=== PATIENT | female | born 1945 ===

== ENCOUNTER 2017-01-19 16:26 | Inpatient (IN) | payer MEDICARE, OTHER ==
--- NOTE | 2017-01-19 16:56 | C.PDOC ---
History Of Present Illness 71-year-old female, presents to the emergency department with complaints of syncope onset prior to arrival. States "I don't remember what happened" Patient states she was standing, cooking and "felt funny." She was caught from fall by grandson. Complaining of abrasion to left ankle and right arm. Patient is currently asymptomatic. Denies chest pain, headache, abdominal pain. SYNCOPE ONS[employer]. "I DONT REMEMBER WHAT HAPPENED". PS WAS STANDING, COOKING FELT "FUNNY". WAS CAUGHT FROM FALL BY GRANDSON. CO ABRASION L ANKLE, R ARM. CURRENTLY ASYMPT. DENIES CP, HINES, ABD PAIN. HO AML, CURRENTLY RECEIVING CHEMO @ [facility] IN [facility]. LAST CHEMO 2 WKS AGO EXAM NAD NONTOXIC HEENT pallor SKIN +ABRASION R ARM, L ANKLE. NO BLEED LUNGS NEG CV RRR NEURO NO FOCAL DEF EXT ATRAUM ABD NEG Time Seen by Provider: 01/19/17 16:46 Chief Complaint (Nursing): Syncope History Per: Patient, Family History/Exam Limitations: no limitations Onset/Duration Of Symptoms: Other (prior to arrival) Past Medical History Reviewed: Historical Data, Nursing Documentation, Vital Signs Vital Signs: Last Vital Signs Temp 99.1 F 01/19/17 16:40 Pulse 71 01/19/17 18:18 Resp 18 01/19/17 18:18 BP 110/50 L 01/19/17 18:18 Pulse Ox 100 01/19/17 18:26 - Medical History PMH: HTN, Hypercholesterolemia, Hypothyroidism Family History: States: No Known Family Hx - Social History Hx Alcohol Use: No Hx Substance Use: No - Immunization History Hx Tetanus Toxoid Vaccination: No Hx Influenza Vaccination: Yes Hx Pneumococcal Vaccination: Yes Review Of Systems Except As Marked, All Systems Reviewed And Found Negative. Cardiovascular: Negative for: Chest Pain Respiratory: Negative for: Shortness of Breath Gastrointestinal: Negative for: Vomiting Skin: Positive for: Other (Abrasion to L ankle) Neurological: Positive for: Other (Syncopal episode). Negative for: Weakness, Numbness Physical Exam - Physical Exam Appears: Non-toxic, No Acute Distress Skin: Warm, Dry, No Rash, Other (+ABRASION R ARM, L ANKLE. NO BLEED) Head: Atraumatic, Normacephalic Eye(s): bilateral: Conjunctiva Pale Nose: Normal Oral Mucosa: Moist Lips: Normal Appearing Neck: Normal ROM Respiratory: No Accessory Muscle Use Neurological/Psych: Oriented x3 ED Course And Treatment - Laboratory Results Result Diagrams: 01/19/17 17:57 01/19/17 17:57 ECG: Interpreted By Me ECG Rhythm: Sinus Rhythm ECG Interpretation: Normal Rate From EC O2 Sat by Pulse Oximetry: 100 Pulse Ox Interpretation: Normal - Radiology CXR: Interpreted by Me CXR Interpretation: Yes: No Acute Disease Progress - Re-Evaluation Re-evaluation Note: 01/19/17 18:35 PT ADVISED OF NEED TO STAY. 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 CONSULT DR Raul HOWELL, DEFER TRANSFUSION PENDING HEME/ONC CONSULT - Data Reviewed Data Reviewed: Lab, Diagnostic imaging, EKG, Old records - Continuity of Care Discussed patient case with:: Patient, On-call PMD-pt unassigned Disposition Counseled Patient/Family Regarding: Studies Performed, Diagnosis - Disposition Disposition: HOSPITALIZED Disposition Time: 18:38 Condition: STABLE - POA Present On Arrival: None - Clinical Impression Clinical Impression: Syncope, AML (acute myeloblastic leukemia), Anemia, Thrombocytopenia - Scribe Statement The provider has reviewed the documentation as recorded by the Scribe Gustavo Lee All medical record entries made by the Scribe were at my direction and personally dictated by me. I have reviewed the chart and agree that the record accurately reflects my personal performance of the history, physical exam, medical decision making, and the department course for this patient. I have also personally directed, reviewed, and agree with the discharge instructions and disposition. Decision To Admit - Pt Status Changed To: Hospital Disposition Of: Inpatient - Admit Certification Admit to Inpatient:: After my assessment, the patient will require hospitalization for at least two midnights. This is because of the severity of symptoms shown, intensity of services needed, and/or the medical risk in this patient being treated as an outpatient. - InPatient: Physician Admission Certification: I certify that this patient requires 2 or more midnights of care for the following reason:: SEE NOTE - . Bed Request Type: Telemetry Admitting Physician: Noe Coughlin Patient Diagnosis: Syncope, AML (acute myeloblastic leukemia), Anemia, Thrombocytopenia
[2017-01-19 18:08] LABS: BASO % 0.6 % (0.0-2.0); EOS % 0.6 % (0.0-4.0); HEMATOCRIT 19.7 % (34.0-47.0); LYMPH # 0.5 K/uL (1.0-4.3); LYMPH % 55.5 % (20.0-40.0); MEAN CELL VOLUME 85.7 fL (81.0-99.0); MEAN CORPUSCULAR HEMOGLOBIN 29.7 pg (27.0-31.0); MEAN CORPUSCULAR HGB CONC 34.6 g/dL (33.0-37.0); MONO % 1.5 % (0.0-10.0); NRBC % 0.1 % (0.0-2.0); RED CELL DISTRIBUTION WIDTH 12.7 % (11.5-14.5)
--- NOTE | 2017-01-19 18:08 | CT ---
EXAM: CT Head Without Intravenous Contrast CLINICAL HISTORY: 71 years old, female; Signs and symptoms; Syncope and collapse TECHNIQUE: Axial computed tomography images of the head/brain without intravenous contrast. This CT exam was performed using one or more of the following dose reduction techniques: automated exposure control, adjustment of the mA and/or kV according to patient size, and/or use of iterative reconstruction technique. EXAM DATE/TIME: 01/19/2017 4:58 PM COMPARISON: There are no prior studies for comparison. FINDINGS: Brain: There is dilatation of sulci gyri and ventricles. There is no midline shift. There is decreased attenuation in periventricular white matter. There are age-indeterminate lacunar infarcts in the basal ganglia. There are no focal masses. There are no focal hemorrhages. Scott-white differentiation is visualized. Ventricles: See above Bones: Cranial vault is intact. Soft tissues: unremarkable Sinuses: There is no acute sinusitis. Ears and mastoids: Middle ears and mastoids are unremarkable. Orbits: Orbital contents are unremarkable. IMPRESSION: Mild atrophy and small vessel disease, no bleed
[2017-01-19 18:16] LABS: CHLORIDE 104 mmol/L (98-107); POTASSIUM 4.4 mmol/L (3.6-5.2); SODIUM 137 mmol/L (132-148)
[2017-01-19 18:18] LABS: BILIRUBIN,TOTAL 0.6 mg/dL (0.2-1.3); GFR AFRICAN-AMERICAN > 60
[2017-01-19 18:19] LABS: ALB/GLOB RATIO 1.2 (1.0-2.1); ALKALINE PHOSPHATASE 65 U/L (38-126); ALT/SGPT 17 U/L (9-52); AST/SGOT 13 U/L (14-36); BLOOD UREA NITROGEN 18 mg/dL (7-17); CARBON DIOXIDE 23 mmol/L (22-30); GLUCOSE,RANDOM 222 mg/dL (65-105); TOTAL PROTEIN 6.1 g/dL (6.3-8.3)
[2017-01-19 18:20] LABS: CALCIUM 8.1 mg/dl (8.6-10.4)
[2017-01-19 21:07] LABS: RBC URINE < 1 /hpf (0-3); URINE BILIRUBIN NEGATIVE (NEGATIVE); URINE BLOOD NEGATIVE (NEGATIVE); URINE COLOR Straw (YELLOW); URINE GLUCOSE (UA) NORMAL (Normal); URINE KETONE NEGATIVE (NEGATIVE); URINE LEUKOCYTE ESTERASE NEG Leu/uL (Negative); URINE PROTEIN NEGATIVE (NEGATIVE); URINE UROBILINOGEN NORMAL mg/dL (0.2-1.0)
--- NOTE | 2017-01-19 21:13 | CP.PCM.CON ---
History of Present Illness - History of Present Illness History of Present Illness: 71 year old female with a history of AML diagnosed in 2012 on azacytadine treatment at [facility], last treated about 2 weeks ago, admitted with syncopal episode and pancytopenia. The patient reports to cooking and awoke on the floor covered in her own vomit. She was found by her grandson and brought to the hospital. In the ER, she was found severely pancytopenic. She denies fevers and chills. She has no bleeding and bruising. She does report to requiring PRBC and PLT transfusion prior to some of her leukemia treatments. Past medical history: AML Past surgical history: None Family history: Denies hematologic and oncologic problems Social history: Denies tobacco, alcohol, and illicit drug use. Allergies: NKA Review of systems: All remaining review of systems including HEENT, cardiovascular, respiratory, gastrointestinal, genitourinary, musculoskeletal, dermatologic, neurologic, and psychiatric are negative unless mentioned in the HPI. Past Patient History - Past Social History Smoking Status: Never Smoked - CARDIAC Hx Hypercholesterolemia: Yes Hx Hypertension: Yes - ENDOCRINE/METABOLIC Hx Hypothyroidism: Yes - HEMATOLOGICAL/ONCOLOGICAL Hx Leukemia: Yes (on chemo) - PSYCHIATRIC Hx Substance Use: No Meds Allergies/Adverse Reactions: Allergies Allergy/AdvReac Type Severity Reaction Status Date / Time No Known Allergies Allergy Verified 01/19/17 19:25 Physical Exam - Head Exam Head Exam: ATRAUMATIC - Eye Exam Eye Exam: Normal appearance - ENT Exam ENT Exam: Mucous Membranes Dry - Respiratory Exam Respiratory Exam: NORMAL BREATHING PATTERN - Cardiovascular Exam Cardiovascular Exam: +S1, +S2 - GI/Abdominal Exam GI & Abdominal Exam: Normal Bowel Sounds - Extremities Exam Extremities exam: Positive for: normal inspection - Neurological Exam Neurological exam: Oriented x3 - Psychiatric Exam Psychiatric exam: Normal Affect, Normal Mood - Skin Skin Exam: Warm Results - Vital Signs Recent Vital Signs: Last Vital Signs Temp 98.8 F 01/19/17 19:36 Pulse 67 01/19/17 19:36 Resp 13 01/19/17 19:36 BP 125/41 L 01/19/17 19:36 Pulse Ox 99 01/19/17 19:36 - Labs Result Diagrams: 01/19/17 17:57 01/19/17 17:57 Labs: Laboratory Results - last 24 hr 01/19/17 19:52 Blood Type O POSITIVE Antibody Screen Negative Assessment & Plan (1) Pancytopenia Assessment and Plan: treatment related vs. progression of AML with severe neutropenia will need neutropenic precautions transfuse 2U PRBC and 1 bag platelets avoid Neupogen as may stimulate leukemia Status: Acute (2) AML (acute myeloblastic leukemia) Assessment and Plan: on hypomethylating agent (azacytadine) at [facility]; last given 2 weeks ago outpatient treatment Thank you for this interesting consult. Status: Acute
[2017-01-20] MEDS ORDERED: Pantoprazole 40 mg EC Tab PO SCH ×2 (07:30→10:00)
--- NOTE | 2017-01-20 08:03 | RAD ---
PROCEDURE: CHEST RADIOGRAPH, 1 VIEW HISTORY: chest pain COMPARISON: None available. FINDINGS: LUNGS: Mild venous congestion. Right hilar prominence. PLEURA: No pneumothorax or pleural fluid seen. CARDIOVASCULAR: Normal. OSSEOUS STRUCTURES: Degenerative changes in the spine and shoulders. VISUALIZED UPPER ABDOMEN: Normal. OTHER FINDINGS: None. IMPRESSION: Mild venous congestion.
[2017-01-20] MEDS ORDERED: Simethicone 80 mg Chewtab PO PRN ×2 (08:34→12:00)
[2017-01-20] MEDS: (Lantus) Insulin Glargine, Recombinant SC SCH (11:26)
[2017-01-20] MEDS: Magnesium Oxide 400 mg Tab UD PO SCH (11:27)
[2017-01-20] MEDS: (Novolog) Insulin Aspart, Recombinant 100 u/ml 10 ml vial SC SCH ×4 (11:27→22:43)
[2017-01-20] MEDS: Atovaquone 750 mg/5 ml Susp UD PO SCH (11:28)
[2017-01-20] MEDS: Nystatin 100,000 Units/gm Cream(15 gm) TOP SCH (11:29)
--- NOTE | 2017-01-20 11:32 | CP.PCM.PN ---
Subjective - Date & Time of Evaluation Date of Evaluation: 01/20/17 Time of Evaluation: 09:40 - Subjective Subjective: PGY2 Medicine Note - Dr. Coughlin's service: Patient seen and examined at bedside this AM. Patient reports still feeling weak. Patient had 2U pRBCs last night and 1 unit of platelets. Patient denies fever, chills, chest pain, SOB, abdominal pain, nausea, vomiting. Objective - Vital Signs/Intake and Output Vital Signs (last 24 hours): Temp Pulse Resp BP Pulse Ox 98.4 F 64 20 133/60 97 01/20/17 07:56 01/20/17 07:56 01/20/17 07:56 01/20/17 07:56 01/20/17 07:56 Intake and Output: 01/20/17 01/20/17 06:59 18:59 Intake Total 308 Balance 308 - Medications Medications: Current Medications Acyclovir (Zovirax) 800 mg PO BID [facility] Atovaquone (Mepron) 750 mg PO DAILY [facility] Buspirone HCl (Buspar) 15 mg PO DAILY [facility] Carvedilol (Coreg) 3.125 mg PO BID [facility] Clotrimazole (Mycelex Pool) 10 mg PO TID [facility] Escitalopram Oxalate (Lexapro) 20 mg PO DAILY [facility] Gabapentin (Neurontin) 600 mg PO TID [facility] Insulin Aspart (Novolog) 0 unit SC ACHS [facility] PRN Reason: Protocol Insulin Glargine (Lantus) 7 unit SC DAILY [facility] Levothyroxine Sodium (Synthroid) 50 mcg PO 0630 [facility] Loperamide HCl (Imodium) 2 mg PO QID PRN PRN Reason: Diarrhea Losartan Potassium (Cozaar) 25 mg PO DAILY [facility] Magnesium Oxide (Mag-Ox) 400 mg PO DAILY [facility] Nystatin (Mycostatin Cream) 0 ea TOP DAILY [facility] Ondansetron HCl (Zofran Odt) 8 mg PO Q8H PRN PRN Reason: Nausea/Vomiting Pantoprazole Sodium (Protonix Ec Tab) 40 mg PO DAILY [facility] Simethicone (Mylicon Chew Tab) 80 mg PO BID PRN PRN Reason: GI DISTRESS Sitagliptin Phosphate (Januvia) 100 mg PO DAILY [facility] - Labs Labs: PT 11.2 SECONDS (9.7-12.2) 01/19/17 17:57 INR 1.0 01/19/17 17:57 APTT 23 SECONDS (21-34) 01/19/17 17:57 - Constitutional Appears: Non-toxic, No Acute Distress - Head Exam Head Exam: NORMAL INSPECTION - Eye Exam Eye Exam: EOMI - ENT Exam ENT Exam: Mucous Membranes Moist - Respiratory Exam Respiratory Exam: Clear to Ausculation Bilateral, NORMAL BREATHING PATTERN. absent: Rales, Rhonchi, Wheezes - Cardiovascular Exam Cardiovascular Exam: REGULAR RHYTHM, +S1, +S2. absent: Tachycardia - GI/Abdominal Exam GI & Abdominal Exam: Soft, Normal Bowel Sounds. absent: Tenderness - Neurological Exam Neurological Exam: Alert, Awake, Oriented x3 - Psychiatric Exam Psychiatric exam: Normal Affect, Normal Mood - Skin Skin Exam: Normal Color, Warm Assessment and Plan - Assessment and Plan (Free Text) Assessment: Pancytopenia Heme/Onc consult - Dr. Alcocer - help appreciated Likely secondary to progression of AML vs. chemotherapy 2 units pRBCs 01/19/17 1 unit plts 01/19/17 F/U CBC today Acyclovir 800mg PO bID for prophylaxis Clotrimazole 10mg PO TID for prophylaxis AML on hypomethylating agent (azacytadine) at [facility]; last given 2 weeks ago outpatient treatment Syncope Head CT - mild atrophy and small vessel disease F/U ECHO, carotid duplex scan No EEG or MRI for now per Dr. Coughlin F/U Vitamin D, B12, Folate, RPR Elevated d dimer 730 No CTA because patient does not have symptoms per Dr. Ced Rodriguez Simethicone 80mg PO BID HTN Cozaar 25mg PO daily Hypothyroid Synthroid 50 mcg PO daily DM RISS Accuchecks Lantus 7U SC daily Gabapentin 600mg PO TID Januvia 100mg PO daily Prophylaxis Protonix 40mg PO daily No chemical VTE prophylaxis secondary to pancytopenia
[2017-01-20 12:15] LABS: BASO % 0.5 % (0.0-2.0); EOS % 0.3 % (0.0-4.0); HEMATOCRIT 28.1 % (34.0-47.0); LYMPH # 0.5 K/uL (1.0-4.3); LYMPH % 49.7 % (20.0-40.0); MEAN CORPUSCULAR HEMOGLOBIN 29.8 pg (27.0-31.0); MEAN CORPUSCULAR HGB CONC 35.7 g/dL (33.0-37.0); MEAN PLATELET VOLUME 7.7 fL (7.2-11.7); MONO % 1.7 % (0.0-10.0); NRBC % 0.2 % (0.0-2.0); RED CELL DISTRIBUTION WIDTH 13.2 % (11.5-14.5)
[2017-01-20 12:19] LABS: MEAN CELL VOLUME 83.3 fL (81.0-99.0)
--- NOTE | 2017-01-20 12:25 | CARD ---
APPROVED REPORT EXAM: Two-dimensional and M-mode echocardiogram with Doppler and color Doppler. Other Information Quality : GoodRhythm : NSR INDICATION Dyspnea Syncope aml, thrombocytopenia, anemia RISK FACTORS Hypertension Hyperlipidemia M-Mode DIMENSIONS RVDd1.51 (2.1-3.2cm)Left Atrium (MM)3.72 (2.5-4.0cm) IVSd1.07 (0.7-1.1cm)Aortic Root2.95 (2.2-3.7cm) LVDd4.43 (4.0-5.6cm)Aortic Cusp Exc.1.48 (1.5-2.0cm) PWd1.22 (0.7-1.1cm)FS (%) 22 % LVDs3.47 (2.0-3.8cm)LVEF (%)44 (>50%) Aortic Valve AoV Peak Cjrnkvej316.9cm/Reinier Peak GR.10mmHg Mitral Valve MV E Ckyyfyiu566.4cm/sMV A Ptnklfvw851.7cm/sE/A ratio0.8 TDI E/Lateral E'0.0E/Medial E'0.0 Tricuspid Valve TR Peak Hftwqajg725wk/sTR Peak Gr.[id number] LEFT VENTRICLE The left ventricle is normal size. There is normal left ventricular wall thickness. The systolic function is mildly impaired. Transmitral Doppler flow pattern is Grade I-abnormal relaxation pattern. RIGHT VENTRICLE The right ventricle is normal size. There is normal right ventricular wall thickness. The right ventricular systolic function is normal. ATRIA The left atrium size is normal. The right atrium size is normal. AORTIC VALVE The aortic valve is normal in structure. No aortic regurgitation is present. MITRAL VALVE Mitral regurgitation is trace. TRICUSPID VALVE There is mild to moderate tricuspid regurgitation. There is mild to moderate pulmonary hypertension. PULMONIC VALVE There is trace pulmonic valvular regurgitation. GREAT VESSELS The aortic root is normal in size. PERICARDIAL EFFUSION There is no pericardial effusion. <Conclusion> The left ventricle is normal size. There is normal left ventricular wall thickness. The systolic function is mildly impaired. Transmitral Doppler flow pattern is Grade I-abnormal relaxation pattern. There is mild to moderate tricuspid regurgitation. There is mild to moderate pulmonary hypertension.
[2017-01-20 12:45] LABS: CHLORIDE 102 mmol/L (98-107); POTASSIUM 4.1 mmol/L (3.6-5.2); SODIUM 136 mmol/L (132-148)
[2017-01-20 12:47] LABS: AST/SGOT 17 U/L (14-36); BILIRUBIN,TOTAL 1.1 mg/dL (0.2-1.3); CARBON DIOXIDE 24 mmol/L (22-30); GFR AFRICAN-AMERICAN > 60
[2017-01-20 12:48] LABS: ALB/GLOB RATIO 1.1 (1.0-2.1); ALKALINE PHOSPHATASE 75 U/L (38-126); ALT/SGPT 19 U/L (9-52); BLOOD UREA NITROGEN 12 mg/dL (7-17); CALCIUM 8.4 mg/dl (8.6-10.4); GLUCOSE,RANDOM 306 mg/dL (65-105); TOTAL PROTEIN 6.8 g/dL (6.3-8.3)
--- NOTE | 2017-01-20 14:57 | CP.PCM.CON ---
<Abigail Matos - Last Filed: 01/20/17 16:15> History of Present Illness - History of Present Illness History of Present Illness: PGY-[address] 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 Pt ate only breakfast, was cooking at home, suddenly felt "funny" , then found herself awake on the floor with vomitus. Grandson found pt on the floor and sent her to the ER. During this hospital stay, she was on neutropenic precaution. She received rRBC x 2 and plt x 1. Echo (01/20): LVEF 44 with Grade 1 relaxation. Moderate tricuspid regurg. Mod pulm HTN, RVSP 50. Carotid doppler: pending offical consult PMH AML on azacytadine Diabetes x 30 years PSH Port-a-cath removal FH: DM (no stroke. no MS) SH: deneis ever drink, smoke, drug Meds: MICHELLE Allergy: NKA PMD: [facility] Past Patient History - Past Social History Smoking Status: Former Smoker - CARDIAC Hx Hypercholesterolemia: Yes Hx Hypertension: Yes - ENDOCRINE/METABOLIC Hx Hypothyroidism: Yes - HEMATOLOGICAL/ONCOLOGICAL Hx Leukemia: Yes (on chemo) - MUSCULOSKELETAL/RHEUMATOLOGICAL Hx Falls: Yes - PSYCHIATRIC Hx Substance Use: No - ANESTHESIA Hx Anesthesia: Yes Hx Anesthesia Reactions: No Hx Malignant Hyperthermia: No Has any member of the family had a problem w/ anesthesia?: No Meds Allergies/Adverse Reactions: Allergies Allergy/AdvReac Type Severity Reaction Status Date / Time No Known Allergies Allergy Verified 01/19/17 19:25 - Medications Medications: Current Medications Acyclovir (Zovirax) 800 mg PO BID [facility] Last Admin: 01/20/17 11:29 Dose: 800 mg Atovaquone (Mepron) 750 mg PO DAILY [facility] Last Admin: 01/20/17 11:28 Dose: 750 mg Buspirone HCl (Buspar) 15 mg PO DAILY [facility] Last Admin: 01/20/17 11:27 Dose: 15 mg Carvedilol (Coreg) 3.125 mg PO BID [facility] Last Admin: 01/20/17 11:28 Dose: 3.125 mg Clotrimazole (Mycelex Pool) 10 mg PO TID [facility] Last Admin: 01/20/17 13:24 Dose: 10 mg Escitalopram Oxalate (Lexapro) 20 mg PO DAILY [facility] Last Admin: 01/20/17 11:28 Dose: 20 mg Gabapentin (Neurontin) 600 mg PO TID [facility] Last Admin: 01/20/17 13:24 Dose: 600 mg Insulin Aspart (Novolog) 0 unit SC ACHS [facility] PRN Reason: Protocol Last Admin: 01/20/17 13:24 Dose: 5 unit Insulin Glargine (Lantus) 7 unit SC DAILY [facility] Last Admin: 01/20/17 11:26 Dose: 7 units Levothyroxine Sodium (Synthroid) 50 mcg PO 30 [facility] Loperamide HCl (Imodium) 2 mg PO QID PRN PRN Reason: Diarrhea Losartan Potassium (Cozaar) 25 mg PO DAILY [facility] Last Admin: 01/20/17 11:27 Dose: 25 mg Magnesium Oxide (Mag-Ox) 400 mg PO DAILY [facility] Last Admin: 01/20/17 11:27 Dose: 400 mg Nystatin (Mycostatin Cream) 0 ea TOP DAILY [facility] Last Admin: 01/20/17 11:29 Dose: 1 appl Ondansetron HCl (Zofran Odt) 8 mg PO Q8H PRN PRN Reason: Nausea/Vomiting Pantoprazole Sodium (Protonix Ec Tab) 40 mg PO DAILY [facility] Simethicone (Mylicon Chew Tab) 80 mg PO BID PRN PRN Reason: GI DISTRESS Last Admin: 01/20/17 13:24 Dose: 80 mg Sitagliptin Phosphate (Januvia) 100 mg PO DAILY [facility] Last Admin: 01/20/17 11:28 Dose: 100 mg Physical Exam - Head Exam Head Exam: ATRAUMATIC, NORMOCEPHALIC - Eye Exam Eye Exam: EOMI, Normal appearance, PERRL Pupil Exam: NORMAL ACCOMODATION - ENT Exam ENT Exam: Mucous Membranes Moist - Respiratory Exam Respiratory Exam: Clear to Auscultation Bilateral, NORMAL BREATHING PATTERN. absent: Rales, Rhonchi, Wheezes - Cardiovascular Exam Cardiovascular Exam: REGULAR RHYTHM, +S1, +S2. absent: Systolic Murmur - GI/Abdominal Exam GI & Abdominal Exam: Normal Bowel Sounds, Soft. absent: Distended, Firm, Guarding, Tenderness - Extremities Exam Extremities exam: Positive for: pedal edema (slight ), pedal pulses present. Negative for: calf tenderness - Back Exam Back exam: absent: CVA tenderness (L), CVA tenderness (R) - Neurological Exam Neurological exam: Alert, Oriented x3 - Psychiatric Exam Psychiatric exam: Normal Affect, Normal Mood Results - Vital Signs Recent Vital Signs: Last Vital Signs Temp 98.4 F 01/20/17 07:56 Pulse 62 01/20/17 08:00 Resp 20 01/20/17 07:56 BP 133/60 01/20/17 07:56 Pulse Ox 97 01/20/17 07:56 - Labs Result Diagrams: 01/20/17 12:05 01/20/17 12:05 Labs: Laboratory Results - last 24 hr 01/19/17 01/19/17 01/20/17 19:52 20:49 06:29 WBC RBC Hgb Hct MCV MCH MCHC RDW Plt Count MPV Neut % (Auto) Lymph % (Auto) [place] % (Auto) Eos % (Auto) Baso % (Auto) Neut # Lymph # [place] # Eos # Baso # Sodium Potassium Chloride Carbon Dioxide Anion Gap BUN Creatinine Est GFR ( Amer) Est GFR (Non-Af Amer) POC Glucose (mg/dL) 255 H Random Glucose Calcium Total Bilirubin AST ALT Alkaline Phosphatase Total Protein Albumin Globulin Albumin/Globulin Ratio Vitamin B12 25-OH Vitamin D Total Urine Color Straw Urine Clarity Clear Urine pH 6.0 Ur Specific [place] 1.006 Urine Protein Negative Urine Glucose (UA) Normal Urine Ketones Negative Urine Blood Negative Urine Nitrate Negative Urine Bilirubin Negative Urine Urobilinogen Normal Ur Leukocyte Esterase Neg Urine RBC (Auto) < 1 Ur Squamous Epith Cells 1 Blood Type O POSITIVE Antibody Screen Negative 01/20/17 01/20/17 01/20/17 11:59 12:05 12:05 WBC 1.0 L* RBC 3.38 L Hgb 10.0 L D Hct 28.1 L MCV 83.3 D MCH 29.8 MCHC 35.7 RDW 13.2 Plt Count 40 L D MPV 7.7 Neut % (Auto) 47.8 L Lymph % (Auto) 49.7 H [place] % (Auto) 1.7 Eos % (Auto) 0.3 Baso % (Auto) 0.5 Neut # 0.5 L Lymph # 0.5 L [place] # 0.0 Eos # 0.0 Baso # 0.0 Sodium 136 Potassium 4.1 Chloride 102 Carbon Dioxide 24 Anion Gap 14 BUN 12 Creatinine 0.7 Est GFR ( Amer) > 60 Est GFR (Non-Af Amer) > 60 POC Glucose (mg/dL) 350 H Random Glucose 306 H Calcium 8.4 L Total Bilirubin 1.1 AST 17 ALT 19 Alkaline Phosphatase 75 Total Protein 6.8 Albumin 3.6 Globulin 3.2 Albumin/Globulin Ratio 1.1 Vitamin B12 > 1000 H 25-OH Vitamin D Total Urine Color Urine Clarity Urine pH Ur Specific [place] Urine Protein Urine Glucose (UA) Urine Ketones Urine Blood Urine Nitrate Urine Bilirubin Urine Urobilinogen Ur Leukocyte Esterase Urine RBC (Auto) Ur Squamous Epith Cells Blood Type Antibody Screen 01/20/17 12:05 WBC RBC Hgb Hct MCV MCH MCHC RDW Plt Count MPV Neut % (Auto) Lymph % (Auto) [place] % (Auto) Eos % (Auto) Baso % (Auto) Neut # Lymph # [place] # Eos # Baso # Sodium Potassium Chloride Carbon Dioxide Anion Gap BUN Creatinine Est GFR ( Amer) Est GFR (Non-Af Amer) POC Glucose (mg/dL) Random Glucose Calcium Total Bilirubin AST ALT Alkaline Phosphatase Total Protein Albumin Globulin Albumin/Globulin Ratio Vitamin B12 25-OH Vitamin D Total 42.4 Urine Color Urine Clarity Urine pH Ur Specific [place] Urine Protein Urine Glucose (UA) Urine Ketones Urine Blood Urine Nitrate Urine Bilirubin Urine Urobilinogen Ur Leukocyte Esterase Urine RBC (Auto) Ur Squamous Epith Cells Blood Type Antibody Screen Assessment & Plan - Assessment and Plan (Free Text) Plan: 71 F with IDDM2 x 30 years, 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 Cardiology was consulted for syncope work up Syncope r/o cardiogenic etiology - Likely due to Anemic and/or hypoglycemic - Echo (01/20): LVEF 44 with Grade 1 relaxation. Moderate tricuspid regurg. Mod pulm HTN, RVSP 50. - Pending carotid doppler official read - Orthostatic VSS negative - Telemetry (Monitor #4) Sinus 62, occasional bradycardia R/O Non-ischemic cardiomyopathy, induced by chemotherapy - No significant EKG changes - trop negative x 1 - Echo as above Pulmonary hypertension, suspected - RVSP 50 - Consider RHC if necessary CV risk stratification - pending A1c, TSH, lipid Will S/R/D/w Dr. Perdomo - Date & Time Date: 01/20/17 Time: 14:56 <Yandel Perdomo - Last Filed: 01/21/17 07:06> Meds - Medications Medications: Current Medications Acyclovir (Zovirax) 800 mg PO BID [facility] Last Admin: 01/20/17 17:36 Dose: 800 mg Atovaquone (Mepron) 750 mg PO DAILY [facility] Last Admin: 01/20/17 11:28 Dose: 750 mg Buspirone HCl (Buspar) 15 mg PO DAILY [facility] Last Admin: 01/20/17 11:27 Dose: 15 mg Carvedilol (Coreg) 3.125 mg PO BID [facility] Last Admin: 01/20/17 17:36 Dose: 3.125 mg Clotrimazole (Mycelex Pool) 10 mg PO TID [facility] Last Admin: 01/20/17 17:37 Dose: 10 mg Escitalopram Oxalate (Lexapro) 20 mg PO DAILY [facility] Last Admin: 01/20/17 11:28 Dose: 20 mg Gabapentin (Neurontin) 600 mg PO TID [facility] Last Admin: 01/20/17 17:36 Dose: 600 mg Insulin Aspart (Novolog) 0 unit SC ACHS [facility] PRN Reason: Protocol Last Admin: 01/20/17 22:43 Dose: Not Given Insulin Glargine (Lantus) 7 unit SC DAILY [facility] Last Admin: 01/20/17 11:26 Dose: 7 units Levothyroxine Sodium (Synthroid) 50 mcg PO 0630 [facility] Last Admin: 01/21/17 06:43 Dose: 50 mcg Loperamide HCl (Imodium) 2 mg PO QID PRN PRN Reason: Diarrhea Losartan Potassium (Cozaar) 25 mg PO DAILY [facility] Last Admin: 01/20/17 11:27 Dose: 25 mg Magnesium Oxide (Mag-Ox) 400 mg PO DAILY [facility] Last Admin: 01/20/17 11:27 Dose: 400 mg Nystatin (Mycostatin Cream) 0 ea TOP DAILY [facility] Last Admin: 01/20/17 11:29 Dose: 1 appl Ondansetron HCl (Zofran Odt) 8 mg PO Q8H PRN PRN Reason: Nausea/Vomiting Pantoprazole Sodium (Protonix Ec Tab) 40 mg PO DAILY [facility] Simethicone (Mylicon Chew Tab) 80 mg PO BID PRN PRN Reason: GI DISTRESS Last Admin: 01/20/17 13:24 Dose: 80 mg Sitagliptin Phosphate (Januvia) 100 mg PO DAILY [facility] Last Admin: 01/20/17 11:28 Dose: 100 mg Results - Vital Signs Recent Vital Signs: Last Vital Signs Temp 98.6 F 01/21/17 00:00 Pulse 85 01/21/17 00:00 Resp 20 01/21/17 00:00 BP 110/57 L 01/21/17 00:00 Pulse Ox 94 L 01/21/17 00:00 - Labs Result Diagrams: 01/20/17 12:05 01/20/17 12:05 Labs: Laboratory Results - last 24 hr 01/20/17 01/20/17 01/20/17 06:29 11:59 12:05 WBC 1.0 L* RBC 3.38 L Hgb 10.0 L D Hct 28.1 L MCV 83.3 D MCH 29.8 MCHC 35.7 RDW 13.2 Plt Count 40 L D MPV 7.7 Neut % (Auto) 47.8 L Lymph % (Auto) 49.7 H [place] % (Auto) 1.7 Eos % (Auto) 0.3 Baso % (Auto) 0.5 Neut # 0.5 L Lymph # 0.5 L [place] # 0.0 Eos # 0.0 Baso # 0.0 Sodium Potassium Chloride Carbon Dioxide Anion Gap BUN Creatinine Est GFR ( Amer) Est GFR (Non-Af Amer) POC Glucose (mg/dL) 255 H 350 H Random Glucose Calcium Total Bilirubin AST ALT Alkaline Phosphatase Total Protein Albumin Globulin Albumin/Globulin Ratio Vitamin B12 25-OH Vitamin D Total RPR 01/20/17 01/20/17 01/20/17 12:05 12:05 12:05 WBC RBC Hgb Hct MCV MCH MCHC RDW Plt Count MPV Neut % (Auto) Lymph % (Auto) [place] % (Auto) Eos % (Auto) Baso % (Auto) Neut # Lymph # [place] # Eos # Baso # Sodium 136 Potassium 4.1 Chloride 102 Carbon Dioxide 24 Anion Gap 14 BUN 12 Creatinine 0.7 Est GFR ( Amer) > 60 Est GFR (Non-Af Amer) > 60 POC Glucose (mg/dL) Random Glucose 306 H Calcium 8.4 L Total Bilirubin 1.1 AST 17 ALT 19 Alkaline Phosphatase 75 Total Protein 6.8 Albumin 3.6 Globulin 3.2 Albumin/Globulin Ratio 1.1 Vitamin B12 > 1000 H 25-OH Vitamin D Total 42.4 RPR Nonreactive 01/20/17 01/20/17 01/21/17 16:33 21:48 06:56 WBC RBC Hgb Hct MCV MCH MCHC RDW Plt Count MPV Neut % (Auto) Lymph % (Auto) [place] % (Auto) Eos % (Auto) Baso % (Auto) Neut # Lymph # [place] # Eos # Baso # Sodium Potassium Chloride Carbon Dioxide Anion Gap BUN Creatinine Est GFR ( Amer) Est GFR (Non-Af Amer) POC Glucose (mg/dL) 257 H 332 H 350 H Random Glucose Calcium Total Bilirubin AST ALT Alkaline Phosphatase Total Protein Albumin Globulin Albumin/Globulin Ratio Vitamin B12 25-OH Vitamin D Total RPR Assessment & Plan - Assessment and Plan (Free Text) Assessment: Patient seen and evaluated with the medical lead and management plan as per the note Thank you
--- NOTE | 2017-01-20 15:24 | VASCLAB ---
PROCEDURE: HISTORY: syncope COMPARISON: None available. TECHNIQUE: Grayscale and duplex Doppler evaluation of the cervical carotid and vertebral arteries were performed. The common carotid, carotid bifurcations and cervical Internal Carotid Artery (ICA) and proximal External Carotid Artery (ECA) were evaluated. The vertebral arteries were evaluated for gross patency and flow direction. Report prepared by Homer House, BS, RVT FINDINGS: RIGHT CAROTID ARTERIES: 1. Common Carotid Artery: No significant focal plaque formation of the right common carotid artery. Maximum Peak Systolic velocity: 79 cm/sec: End-diastolic velocity 15 cm/sec. 2. Carotid Bifurcation: plaque formation. Maximum Peak Systolic velocity: 70 cm/sec: End-diastolic velocity 13 cm/sec. 3. Internal Carotid Artery: Plaque description: 3.1. Proximal Segment: Peak systolic velocity 88 cm/sec: End-diastolic velocity 24 cm/sec - % stenosis 0-15% 3.2. Middle Segment: Peak systolic velocity 114 cm/sec: End-diastolic velocity 27 cm/sec - % stenosis 0-15% 3.3. Distal Segment: Peak systolic velocity 90 cm/sec: End-diastolic velocity 18 cm/sec - % stenosis 0-15% 4. External Carotid Artery: No significant focal plaque formation. Peak systolic velocity 88 cm/sec 5. ICA/CCA Ratio: 1.4 LEFT CAROTID ARTERIES: 1. Common Carotid Artery: No significant focal plaque formation of the left common carotid artery. Maximum Peak Systolic velocity: 82 cm/sec: End-diastolic velocity 11 cm/sec. 2. Carotid Bifurcation: plaque formation. Maximum Peak Systolic velocity: 70 cm/sec: End-diastolic velocity 12 cm/sec. 3. Internal Carotid Artery: Plaque description: 3.1. Proximal Segment: Peak systolic velocity 100 cm/sec: End-diastolic velocity 24 cm/sec - % stenosis 0-15% 3.2. Middle Segment: Peak systolic velocity 124 cm/sec: End-diastolic velocity 32 cm/sec - % stenosis 0-15% 3.3. Distal Segment: Peak systolic velocity 129 cm/sec: End-diastolic velocity 35 cm/sec - % stenosis 0-15% 4. External Carotid Artery: No significant focal plaque formation. Peak systolic velocity 109 cm/sec 5. ICA/CCA Ratio: 1.6 VERTEBRAL ARTERIES: 1. Right Vertebral Artery: The right vertebral artery flow direction is antegrade. 2. Left Vertebral Artery: The left vertebral artery flow direction is antegrade. OTHER FINDINGS: 1. Right Brachial Blood pressure: 150 mmHg. 2. Left Brachial Blood pressure: 145 mmHg. IMPRESSION: RIGHT: Duplex scan does not suggest hemodynamically significant stenosis of the right extracranial carotid arteries. LEFT: Duplex scan does not suggest hemodynamically significant stenosis of the left extracranial carotid arteries.
--- NOTE | 2017-01-20 18:12 | CP.PCM.PN ---
Subjective - Date & Time of Evaluation Date of Evaluation: 01/20/17 Time of Evaluation: 16:50 - Subjective Subjective: Feeling better s/p 2U PRBC and 1 bag plt Objective - Vital Signs/Intake and Output Vital Signs (last 24 hours): Temp Pulse Resp BP Pulse Ox 98.3 F 65 18 103/52 L 96 01/20/17 15:22 01/20/17 15:22 01/20/17 15:22 01/20/17 15:22 01/20/17 15:22 Intake and Output: 01/20/17 01/20/17 06:59 18:59 Intake Total 308 Balance 308 - Medications Medications: Current Medications Acyclovir (Zovirax) 800 mg PO BID [facility] Last Admin: 01/20/17 17:36 Dose: 800 mg Atovaquone (Mepron) 750 mg PO DAILY [facility] Last Admin: 01/20/17 11:28 Dose: 750 mg Buspirone HCl (Buspar) 15 mg PO DAILY [facility] Last Admin: 01/20/17 11:27 Dose: 15 mg Carvedilol (Coreg) 3.125 mg PO BID [facility] Last Admin: 01/20/17 17:36 Dose: 3.125 mg Clotrimazole (Mycelex Pool) 10 mg PO TID [facility] Last Admin: 01/20/17 17:37 Dose: 10 mg Escitalopram Oxalate (Lexapro) 20 mg PO DAILY [facility] Last Admin: 01/20/17 11:28 Dose: 20 mg Gabapentin (Neurontin) 600 mg PO TID [facility] Last Admin: 01/20/17 17:36 Dose: 600 mg Insulin Aspart (Novolog) 0 unit SC ACHS [facility] PRN Reason: Protocol Last Admin: 01/20/17 17:37 Dose: 3 unit Insulin Glargine (Lantus) 7 unit SC DAILY [facility] Last Admin: 01/20/17 11:26 Dose: 7 units Levothyroxine Sodium (Synthroid) 50 mcg PO 629 [facility] Loperamide HCl (Imodium) 2 mg PO QID PRN PRN Reason: Diarrhea Losartan Potassium (Cozaar) 25 mg PO DAILY [facility] Last Admin: 01/20/17 11:27 Dose: 25 mg Magnesium Oxide (Mag-Ox) 400 mg PO DAILY [facility] Last Admin: 01/20/17 11:27 Dose: 400 mg Nystatin (Mycostatin Cream) 0 ea TOP DAILY [facility] Last Admin: 01/20/17 11:29 Dose: 1 appl Ondansetron HCl (Zofran Odt) 8 mg PO Q8H PRN PRN Reason: Nausea/Vomiting Pantoprazole Sodium (Protonix Ec Tab) 40 mg PO DAILY [facility] Simethicone (Mylicon Chew Tab) 80 mg PO BID PRN PRN Reason: GI DISTRESS Last Admin: 01/20/17 13:24 Dose: 80 mg Sitagliptin Phosphate (Januvia) 100 mg PO DAILY [facility] Last Admin: 01/20/17 11:28 Dose: 100 mg - Labs Labs: 01/20/17 12:05 01/20/17 12:05 PT 11.2 SECONDS (9.7-12.2) 01/19/17 17:57 INR 1.0 01/19/17 17:57 APTT 23 SECONDS (21-34) 01/19/17 17:57 - Head Exam Head Exam: ATRAUMATIC - Eye Exam Eye Exam: Normal appearance - ENT Exam ENT Exam: Mucous Membranes Dry - Respiratory Exam Respiratory Exam: NORMAL BREATHING PATTERN - Cardiovascular Exam Cardiovascular Exam: +S1, +S2 - GI/Abdominal Exam GI & Abdominal Exam: Normal Bowel Sounds - Extremities Exam Extremities Exam: Normal Inspection Assessment and Plan (1) Pancytopenia Assessment & Plan: ANC improved; neutropenic precautions s/p 2U PRBC and 1 bag platelets Status: Acute (2) AML (acute myeloblastic leukemia) Assessment & Plan: on azacytadine outpatient treatment at [facility] Status: Acute
--- NOTE | 2017-01-21 01:56 | CARD ---
APPROVED REPORT EKG Measurement Heart [id number] <Conclusion> Normal sinus rhythm Normal ECG
[2017-01-21] MEDS ORDERED: Levothyroxine 50 MCG TAB PO SCH (06:30)
[2017-01-21 07:28] LABS: BASO % 1.4 % (0.0-2.0); EOS % 0.5 % (0.0-4.0); HEMATOCRIT 26.3 % (34.0-47.0); LYMPH # 0.7 K/uL (1.0-4.3); LYMPH % 61.8 % (20.0-40.0); MEAN CELL VOLUME 83.6 fL (81.0-99.0); MEAN CORPUSCULAR HEMOGLOBIN 29.8 pg (27.0-31.0); MEAN CORPUSCULAR HGB CONC 35.6 g/dL (33.0-37.0); MEAN PLATELET VOLUME 7.1 fL (7.2-11.7); MONO % 4.4 % (0.0-10.0); NRBC % 0.1 % (0.0-2.0); RED CELL DISTRIBUTION WIDTH 13.4 % (11.5-14.5)
[2017-01-21 07:32] LABS: WHITE BLOOD COUNT 1.1 K/uL (4.8-10.8)
[2017-01-21 07:41] LABS: CHLORIDE 102 mmol/L (98-107); POTASSIUM 4.1 mmol/L (3.6-5.2); SODIUM 137 mmol/L (132-148)
[2017-01-21 07:43] LABS: ALB/GLOB RATIO 1.1 (1.0-2.1); AST/SGOT 11 U/L (14-36); BILIRUBIN,TOTAL 0.6 mg/dL (0.2-1.3); CARBON DIOXIDE 26 mmol/L (22-30); CHOLESTEROL 128 mg/dL (0-199); GFR AFRICAN-AMERICAN > 60; TOTAL PROTEIN 6.2 g/dL (6.3-8.3)
[2017-01-21 07:44] LABS: ALKALINE PHOSPHATASE 66 U/L (38-126); ALT/SGPT 15 U/L (9-52); BLOOD UREA NITROGEN 14 mg/dL (7-17); CALCIUM 8.6 mg/dl (8.6-10.4); GLUCOSE,RANDOM 321 mg/dL (65-105)
--- NOTE | 2017-01-21 08:04 | HP ---
The patient is a 71-year-old female admitted to hospital with chief complaint of progressive weakness , fatigue, tiredness, syncope. The patient has history of AML, acute myelogenous leukemia, taken to [facility]. The patient came to the ER, evaluated and found to have pancytopenia, advised admission. PHYSICAL EXAMINATION: GENERAL: Awake and alert, very pleasant female. VITAL SIGNS: Temperature 98, pulse 90. HEENT: Within normal limits. NECK: Supple. CHEST: Symmetrical. HEART: Regular. ABDOMEN: Soft. EXTREMITIES: No edema. ASSESSMENT AND PLAN: leukemia, pancytopenia, syncope. The patient had blood transfusion, supp ortive care. Noe Lennon MD cc: [id number] TT: 01/20/2017 11:02:07 maría
[2017-01-21 08:08] LABS: THYROID STIMULATING HORMONE 0.86 mIU/L (0.46-4.68)
--- NOTE | 2017-01-21 08:48 | CP.PCM.PN ---
Subjective - Date & Time of Evaluation Date of Evaluation: 01/21/17 Time of Evaluation: 10:00 - Subjective Subjective: PGY2 on medicine Dr. Coughlin service: Pt seen and examined at bedside this morning. Pt reports feeling good and no complaints overnight. Will DC home today as per Dr. Coughlin and Dr. Alcocer. Objective - Vital Signs/Intake and Output Vital Signs (last 24 hours): Temp Pulse Resp BP Pulse Ox 98.0 F 67 18 108/58 L 96 01/21/17 07:00 01/21/17 07:00 01/21/17 07:00 01/21/17 07:00 01/21/17 07:00 - Medications Medications: Current Medications Acyclovir (Zovirax) 800 mg PO BID [facility] Last Admin: 01/20/17 17:36 Dose: 800 mg Atovaquone (Mepron) 750 mg PO DAILY [facility] Last Admin: 01/20/17 11:28 Dose: 750 mg Buspirone HCl (Buspar) 15 mg PO DAILY [facility] Last Admin: 01/20/17 11:27 Dose: 15 mg Carvedilol (Coreg) 3.125 mg PO BID [facility] Last Admin: 01/20/17 17:36 Dose: 3.125 mg Clotrimazole (Mycelex Pool) 10 mg PO TID [facility] Last Admin: 01/20/17 17:37 Dose: 10 mg Escitalopram Oxalate (Lexapro) 20 mg PO DAILY [facility] Last Admin: 01/20/17 11:28 Dose: 20 mg Gabapentin (Neurontin) 600 mg PO TID [facility] Last Admin: 01/20/17 17:36 Dose: 600 mg Insulin Aspart (Novolog) [address] [facility] PRN Reason: Protocol Last Admin: 01/20/17 22:43 Dose: Not Given Insulin Glargine (Lantus) 7 unit SC DAILY [facility] Last Admin: 01/20/17 11:26 Dose: 7 units Levothyroxine Sodium (Synthroid) 50 mcg PO 30 [facility] Last Admin: 01/21/17 06:43 Dose: 50 mcg Loperamide HCl (Imodium) 2 mg PO QID PRN PRN Reason: Diarrhea Losartan Potassium (Cozaar) 25 mg PO DAILY [facility] Last Admin: 01/20/17 11:27 Dose: 25 mg Magnesium Oxide (Mag-Ox) 400 mg PO DAILY [facility] Last Admin: 01/20/17 11:27 Dose: 400 mg Nystatin (Mycostatin Cream) 0 ea TOP DAILY [facility] Last Admin: 01/20/17 11:29 Dose: 1 appl Ondansetron HCl (Zofran Odt) 8 mg PO Q8H PRN PRN Reason: Nausea/Vomiting Pantoprazole Sodium (Protonix Ec Tab) 40 mg PO DAILY [facility] Simethicone (Mylicon Chew Tab) 80 mg PO BID PRN PRN Reason: GI DISTRESS Last Admin: 01/20/17 13:24 Dose: 80 mg Sitagliptin Phosphate (Januvia) 100 mg PO DAILY [facility] Last Admin: 01/20/17 11:28 Dose: 100 mg - Labs Labs: 01/21/17 07:13 01/21/17 07:13 PT 11.2 SECONDS (9.7-12.2) 01/19/17 17:57 INR 1.0 01/19/17 17:57 APTT 23 SECONDS (21-34) 01/19/17 17:57 - Constitutional Appears: Non-toxic, No Acute Distress - Head Exam Head Exam: NORMOCEPHALIC - Eye Exam Eye Exam: Normal appearance - ENT Exam ENT Exam: Mucous Membranes Moist - Respiratory Exam Respiratory Exam: Clear to Ausculation Bilateral, NORMAL BREATHING PATTERN. absent: Wheezes - Cardiovascular Exam Cardiovascular Exam: REGULAR RHYTHM, +S1, +S2. absent: Gallop, Rubs - Neurological Exam Neurological Exam: Alert, Awake, Oriented x3 Assessment and Plan - Assessment and Plan (Free Text) Assessment: Pancytopenia Heme/Onc consult - Dr. Alcocer - help appreciated Likely secondary to progression of AML vs. chemotherapy 2 units pRBCs 01/19/17 1 unit plts 01/19/17 F/U CBC today Acyclovir 800mg PO bID for prophylaxis Clotrimazole 10mg PO TID for prophylaxis AML on hypomethylating agent (azacytadine) at [facility]; last given 2 weeks ago outpatient treatment Syncope Head CT - mild atrophy and small vessel disease ECHO 44% No EEG or MRI for now per Dr. Couhglin Carotid ultrasound negative Elevated d dimer 730 Venous doppler negative. Gas Simethicone 80mg PO BID HTN Cozaar 25mg PO daily Hypothyroid Synthroid 50 mcg PO daily DM Lantus 7U SC daily Gabapentin 600mg PO TID Januvia 100mg PO daily Management as per Dr. Coughlin
[2017-01-21] MEDS: Nystatin 100,000 Units/gm Cream(15 gm) TOP SCH (10:12)
[2017-01-21] MEDS: (Novolog) Insulin Aspart, Recombinant 100 u/ml 10 ml vial SC SCH ×2 (10:12→13:24)
[2017-01-21] MEDS: Atovaquone 750 mg/5 ml Susp UD PO SCH (10:13)
[2017-01-21] MEDS: Magnesium Oxide 400 mg Tab UD PO SCH (10:13)
[2017-01-21] MEDS: (Lantus) Insulin Glargine, Recombinant SC SCH (10:13)
--- NOTE | 2017-01-21 13:24 | CP.PCM.PN ---
<ShawnaAbigail - Last Filed: 01/21/17 13:31> Subjective - Date & Time of Evaluation Date of Evaluation: 01/21/17 Time of Evaluation: 13:23 - Subjective Subjective: PGY-[address] Perdomo Pt was seen eating breakfast. NAD Objective - Vital Signs/Intake and Output Vital Signs (last 24 hours): Temp Pulse Resp BP Pulse Ox 98.0 F 67 18 108/58 L 96 01/21/17 07:00 01/21/17 07:00 01/21/17 07:00 01/21/17 07:00 01/21/17 07:00 - Medications Medications: Current Medications Acyclovir (Zovirax) 800 mg PO BID [facility] Last Admin: 01/21/17 10:14 Dose: 800 mg Atovaquone (Mepron) 750 mg PO DAILY [facility] Last Admin: 01/21/17 10:13 Dose: 750 mg Buspirone HCl (Buspar) 15 mg PO DAILY [facility] Last Admin: 01/21/17 10:13 Dose: 15 mg Carvedilol (Coreg) 3.125 mg PO BID [facility] Last Admin: 01/21/17 10:13 Dose: 3.125 mg Clotrimazole (Mycelex Pool) 10 mg PO TID [facility] Last Admin: 01/21/17 10:13 Dose: 10 mg Escitalopram Oxalate (Lexapro) 20 mg PO DAILY [facility] Last Admin: 01/21/17 10:13 Dose: 20 mg Gabapentin (Neurontin) 600 mg PO TID [facility] Last Admin: 01/21/17 10:13 Dose: 600 mg Insulin Aspart (Novolog) 0 unit SC [facility] PRN Reason: Protocol Last Admin: 01/21/17 10:12 Dose: 5 unit Insulin Glargine (Lantus) 7 unit SC DAILY [facility] Last Admin: 01/21/17 10:13 Dose: 7 units Levothyroxine Sodium (Synthroid) 50 mcg PO 0630 [facility] Last Admin: 01/21/17 06:43 Dose: 50 mcg Loperamide HCl (Imodium) 2 mg PO QID PRN PRN Reason: Diarrhea Losartan Potassium (Cozaar) 25 mg PO DAILY [facility] Last Admin: 01/21/17 10:13 Dose: 25 mg Magnesium Oxide (Mag-Ox) 400 mg PO DAILY [facility] Last Admin: 01/21/17 10:13 Dose: 400 mg Nystatin (Mycostatin Cream) 0 ea TOP DAILY [facility] Last Admin: 01/21/17 10:12 Dose: 1 appl Ondansetron HCl (Zofran Odt) 8 mg PO Q8H PRN PRN Reason: Nausea/Vomiting Pantoprazole Sodium (Protonix Ec Tab) 40 mg PO DAILY [facility] Last Admin: 01/21/17 10:13 Dose: 40 mg Simethicone (Mylicon Chew Tab) 80 mg PO BID PRN PRN Reason: GI DISTRESS Last Admin: 01/20/17 13:24 Dose: 80 mg Sitagliptin Phosphate (Januvia) 100 mg PO DAILY [facility] Last Admin: 01/21/17 10:13 Dose: 100 mg - Labs Labs: 01/21/17 07:13 01/21/17 07:13 PT 11.2 SECONDS (9.7-12.2) 01/19/17 17:57 INR 1.0 01/19/17 17:57 APTT 23 SECONDS (21-34) 01/19/17 17:57 - Constitutional Appears: No Acute Distress - Head Exam Head Exam: ATRAUMATIC, NORMOCEPHALIC - Eye Exam Eye Exam: EOMI, Normal appearance, PERRL Pupil Exam: NORMAL ACCOMODATION - ENT Exam ENT Exam: Mucous Membranes Moist, Normal Exam - Neck Exam Neck Exam: Normal Inspection - Respiratory Exam Respiratory Exam: Clear to Ausculation Bilateral, Wheezes, NORMAL BREATHING PATTERN. absent: Rales, Rhonchi - Cardiovascular Exam Cardiovascular Exam: REGULAR RHYTHM, +S1, +S2. absent: Murmur - GI/Abdominal Exam GI & Abdominal Exam: Soft. absent: Guarding, Rigid, Tenderness - Extremities Exam Extremities Exam: Calf Tenderness, Normal Capillary Refill. 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 Cardiology was consulted for syncope work up Syncope r/o cardiogenic etiology - Likely due to Anemic and/or hypoglycemic - per heme/onc: neupogen may stimulate leukemia - Echo (01/20): LVEF 44 with Grade 1 relaxation. Moderate tricuspid regurg. Mod pulm HTN, RVSP 50. 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 Perdomo <Yandel Perdomo - Last Filed: 01/21/17 21:03> Objective - Vital Signs/Intake and Output Vital Signs (last 24 hours): Temp Pulse Resp BP Pulse Ox 98 F 68 20 121/66 100 01/21/17 16:00 01/21/17 16:00 01/21/17 16:00 01/21/17 16:00 01/21/17 16:00 - Labs Labs: 01/21/17 07:13 01/21/17 07:13 PT 11.2 SECONDS (9.7-12.2) 01/19/17 17:57 INR 1.0 01/19/17 17:57 APTT 23 SECONDS (21-34) 01/19/17 17:57 Assessment and Plan - Assessment and Plan (Free Text) Assessment: Patient seen and evaluated with the medical support specialist and agree with the plan
--- NOTE | 2017-01-21 14:19 | VASCLAB ---
PROCEDURE: Lower Extremity Venous Duplex Exam. HISTORY: elevated d dimer PRIORS: None. TECHNIQUE: Bilateral common femoral, femoral, popliteal and posterior tibial, peroneal and great saphenous veins were evaluated. Flow was assessed with color Doppler, compressibility, assessment of phasic flow and augmentation response. Report prepared by Homer House, MOHAN, RVT FINDINGS: RIGHT: 1. Common Femoral Vein: 1.1. Compressibility - Fully compressible: Thrombus - None : Flow - Phasic: Augmentation -Normal: Reflux - None. 2. Femoral Vein: 2.1. Compressibility - Fully compressible: Thrombus - None : Flow - Phasic: Augmentation -Normal: Reflux - None. 3. Popliteal Vein: 3.1. Compressibility - Fully compressible: Thrombus - None : Flow - Phasic: Augmentation -Normal: Reflux - None. 4. Posterior Tibial Vein: 4.1. Compressibility - Fully compressible: Thrombus - None: Flow - Phasic: Augmentation -Normal: Reflux - None. 5. Peroneal Vein: 5.1. Compressibility - Fully compressible: Thrombus - None: Flow - Phasic: Augmentation -Normal: Reflux - None. 6. Great Saphenous Vein: 6.1. Compressibility - Fully compressible: Thrombus - None: Flow - Phasic: Augmentation - Normal: Reflux - Severe. LEFT: 1. Common Femoral Vein: 1.1. Compressibility - Fully compressible: Thrombus - None: Flow - Phasic: Augmentation -Normal: Reflux - None. 2. Femoral Vein: 2.1. Compressibility - Fully compressible: Thrombus - None: Flow - Phasic: Augmentation -Normal: Reflux - None. 3. Popliteal Vein: 3.1. Compressibility - Fully compressible: Thrombus - None : Flow - Phasic: Augmentation -Normal: Reflux - None. 4. Posterior Tibial Vein: 4.1. Compressibility - Fully compressible: Thrombus - None: Flow - Phasic: Augmentation -Normal: Reflux - None. 5. Peroneal Vein: 5.1. Compressibility - Fully compressible: Thrombus - None: Flow - Phasic: Augmentation -Normal: Reflux - None. 6. Great Saphenous Vein: 6.1. Compressibility - Fully compressible: Thrombus - None: Flow - Phasic: Augmentation - Normal: Reflux - Severe. OTHER FINDINGS: Right: Severe valvular incompetence of the right greater saphenous vein. Left: Severe valvular incompetence of the left greater saphenous vein. IMPRESSION: Right: No evidence of deep or superficial vein thrombosis of the right lower extremity. Left: No evidence of deep or superficial vein thrombosis of the left lower extremity.
[2017-01-21 17:07] VITALS: BP 121/66; PULSE 68; RESP 20; TEMP 98; O2SAT 100
== END 2017-01-21 16:30 | disposition home or self-care (01) | DRG 809 ==
LOC: C.ER 16:26 → C.9E 18:39 → C.6T 19:46 → C.9E 19:59 → C.5T 21:56 → C.9E 22:45 → C.5T 22:55
PROVIDERS: ADMIT Internal Medicine Pulmonary Disease; ATTEND Internal Medicine Pulmonary Disease
DX: D61.818 Other pancytopenia (principal); C92.00 Acute myeloblastic leukemia, not having achieved remission; D69.6 Thrombocytopenia, unspecified; R55 Syncope and collapse; E11.9 Type 2 diabetes mellitus without complications; I10 Essential (primary) hypertension; E03.9 Hypothyroidism, unspecified; Z79.4 Long term (current) use of insulin